=== PATIENT | female | born 2000 | race American Indian/Alaskan Native ===

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

== ENCOUNTER 2020-02-06 11:44 | Emergency (ER) | payer MEDICAID ==
--- NOTE | 2020-02-06 12:04 | Event Note ---
ED Screening Note ED Screening Note: 19 y/o female with a few day history of abdominal pain , nausea, vomiting, diarrhea, excessive coughing, and chest pain. chills. This initial assessment/diagnostic orders/clinical plan/treatment(s) is/are subject to change based on patients health status, clinical progression and re- assessment by fellow clinical providers in the ED. Further treatment and workup at subsequent clinical providers discretion. Patient/guardian urged not to elope from the ED as their condition may be serious if not clinically assessed and managed. Initial orders include: cxr, flu swab,
[2020-02-06 12:50] LABS: HCG Qualitative,Urine Negative (Negative)
[2020-02-06] MEDS ORDERED: SODIUM CHLORIDE 0.9% 1000 ML 1,000 ML IV ONE (13:24)
[2020-02-06] MEDS ORDERED: ONDANSETRON 4 MG/2 ML INJ IV ONE (13:24)
--- NOTE | 2020-02-06 13:27 | XRay Report ---
CHEST PA AND LATERAL VIEWS INDICATION: cough and chest pain. COMPARISON: None. FINDINGS: Support devices: None. Heart: Within normal limits. Lungs/Pleura: No acute pulmonary or pleural findings. IMPRESSION: 1. No acute findings. Signer Name: Jacques Cagle MD Signed: 02/06/2020 1:22 PM Workstation Name: [id number]
--- NOTE | 2020-02-06 14:20 | Emergency Department Report ---
ED N/V/D HPI - General Chief complaint: Nausea/Vomiting/Diarrhea Stated complaint: FLU SYM Time Seen by Provider: 02/06/20 11:59 Source: patient Mode of arrival: Ambulatory Limitations: No Limitations - History of Present Illness Initial comments: 19-year-old -Citizen Of [place] female presents to the emergency room complaining of nausea vomiting diarrhea and cough for 3 days. Patient denies any fever. Patient reported that the vomiting started today and she has had about 7 episodes. Patient states that the diarrhea started today and is been going on every 30 minutes. Patient states she is had a cold for 3 days. Patient reports she is up-to-date on her vaccines. Patient reports her last menstrual period was 01/22/2020. Patient reports that she took Pepto-Bismol prior to arrival. Patient reports she has been taken DayQuil for her cold-like symptoms. Denies any past medical history takes no medications on a daily basis and has no known drug allergies MD complaint: nausea, vomiting, diarrhea, abdominal pain Onset/Timin -: days(s) Description of Vomiting: food contents Description of Diarrhea: water Associated Abdominal Pain: Yes Location: diffuse Severity: moderate Pain Scale: 5 Quality: cramping Consistency: constant Improves with: none Worsens with: none Context: sick contacts (1-year-old child) Associated Symptoms: cough, fever/chills (Chills no fever), nausea/vomiting - Related Data Previous Rx's Medication Instructions Recorded Last Taken Type Ferrous Sulfate [Feosol 325 MG tab] 325 mg PO BID #60 tablet 04/13/18 Unknown Rx Ibuprofen [Motrin 800 MG tab] 800 mg PO Q6H PRN #30 tablet 04/13/18 Unknown Rx Ondansetron [Zofran Odt] 4 mg PO Q8HR #8 tab.rapdis 02/06/20 Unknown Rx Allergies Allergy/AdvReac Type Severity Reaction Status Date / Time No Known Allergies Allergy Verified 02/07/18 23:43 ED Review of Systems ROS: Stated complaint: FLU SYM Other details as noted in HPI Comment: All other systems reviewed and negative ED Past Medical Hx - Past Medical History Previous Medical History?: No Hx Hypertension: No Hx CVA: No Hx Congestive Heart Failure: No Hx Diabetes: No Hx Deep Vein Thrombosis: No Hx Renal Disease: No Hx Sickle Cell Disease: No Hx Seizures: No Hx Asthma: No Hx COPD: No Hx HIV: No - Surgical History Past Surgical History?: No - Social History Smoking Status: Never Smoker Substance Use Type: Marijuana - Medications Home Medications: Home Medications Medication Instructions Recorded Confirmed Last Taken Type Ferrous Sulfate [Feosol 325 MG tab] 325 mg PO BID #60 tablet 04/13/18 Unknown Rx Ibuprofen [Motrin 800 MG tab] 800 mg PO Q6H PRN #30 tablet 04/13/18 Unknown Rx Ondansetron [Zofran Odt] 4 mg PO Q8HR #8 tab.rapdis 02/06/20 Unknown Rx ED Physical Exam - General Limitations: No Limitations General appearance: alert, in no apparent distress - Head Head exam: Present: atraumatic, normocephalic - Eye Eye exam: Present: normal appearance - ENT ENT exam: Present: mucous membranes moist - Neck Neck exam: Present: normal inspection - Respiratory Respiratory exam: Present: normal lung sounds bilaterally. Absent: respiratory distress - Cardiovascular Cardiovascular Exam: Present: tachycardia. Absent: systolic murmur, diastolic murmur, rubs, gallop - GI/Abdominal GI/Abdominal exam: Present: soft, normal bowel sounds. Absent: distended, tenderness, guarding - Extremities Exam Extremities exam: Present: normal inspection - Back Exam Back exam: Present: normal inspection - Neurological Exam Neurological exam: Present: alert, oriented X3, normal gait - Psychiatric Psychiatric exam: Present: normal affect, normal mood - Skin Skin exam: Present: warm, dry, intact, normal color. Absent: rash ED Course Vital Signs 02/06/20 02/06/20 12:00 12:02 Temperature 98.0 F 98.0 F Pulse Rate 103 H 85 Respiratory 20 20 Rate Blood Pressure 133/76 133/75 O2 Sat by Pulse 99 98 Oximetry - Reevaluation(s) Reevaluation #1: 02/06/20 14:32 Patient reports she feels much better after having fluids and Zofran. ED Medical Decision Making - Radiology Data Radiology results: report reviewed Patient: DEWEY PORRAS MR#: [id number] : 2000 Acct:[id number] Age/Sex: 19 / F ADM Date: 02/06/20 Loc: ED Attending Dr: Ordering Physician: FISH MCCONNELL Date of Service: 02/06/20 Procedure(s): XR chest routine 2V Accession Number(s): [id number] cc: FISH MCCONNELL Fluoro Time In Minutes: CHEST PA AND LATERAL VIEWS INDICATION: cough and chest pain. COMPARISON: None. FINDINGS: Support devices: None. Heart: Within normal limits. Lungs/Pleura: No acute pulmonary or pleural findings. IMPRESSION: 1. No acute findings. Signer Name: Jacques Cagle MD Signed: 02/06/2020 1:22 PM Workstation Name: [id number] Transcribed By: LEXA Dictated By: Jacques Cagle MD Electronically Authenticated By: Jacques Cagle MD Signed Date/Time: 02/06/201321 DD/ 21 TD/TT: - Medical Decision Making 19-year-old -Citizen Of [place] female presents to the emergency room complaining of nausea vomiting diarrhea and cough for 3 days. Patient denies any fever. Patient reported that the vomiting started today and she has had about 7 episodes. Patient states that the diarrhea started today and is been going on every 30 minutes. Patient states she is had a cold for 3 days. Patient reports she is up-to-date on her vaccines. Patient reports her last menstrual period was 01/22/2020. Patient reports that she took Pepto-Bismol prior to arrival. Patient reports she has been taken DayQuil for her cold-like symptoms. Denies any past medical history takes no medications on a daily basis and has no known drug allergies. Chest x-ray ordered in triage. IV fluids IV Zofran urine test. Recommend taking Zofran as needed for nausea you can try [id number] Imodium right ear for diarrhea or continue with the Pepto-Bismol. Please continue to drink plenty of fluids keep hydrated and follow-up with your primary care provider. Critical care attestation.: If time is entered above; I have spent that time in minutes in the direct care of this critically ill patient, excluding procedure time. ED Disposition Clinical Impression: Gastroenteritis Disposition: DC-01 TO HOME OR SELFCARE Is pt being admited?: No Does the pt Need Aspirin: No Condition: Stable Instructions: Gastroenteritis (ED) Additional Instructions: Recommend taking Zofran as needed for nausea you can try [id number] Imodium right ear for diarrhea or continue with the Pepto-Bismol. Please continue to drink plenty of fluids keep hydrated and follow-up with your primary care provider. Prescriptions: Ondansetron [Zofran Odt] 4 mg PO Q8HR #8 tab.rapdis Referrals: PRIMARY CARE, [Primary Care Provider] - 3-5 Days Forms: Work/School Release Form(ED)
[2020-02-06 14:47] VITALS: BP 130/71
== END 2020-02-06 14:46 | disposition home or self-care (01) ==
LOC: ED 11:44
DX: K21.9 Gastro-esophageal reflux disease without esophagitis (principal); F12.10 Cannabis abuse, uncomplicated; Z79.899 Other long term (current) drug therapy
CPT/HCPCS: 71046; 81025; 87400; 96361; 96374; 99284; J2405; J7030

== ENCOUNTER 2021-06-24 05:26 | Emergency (ER) | payer MEDICAID | END 2021-06-24 08:30 | disposition left against medical advice (07) | LOC: ED 05:26 | DX: R10.2 Pelvic and perineal pain (principal); Z53.21 Procedure and treatment not carried out due to patient leaving prior to being seen by health care provider ==

== ENCOUNTER 2022-07-10 11:09 | Emergency (ER) | payer MEDICAID ==
[2022-07-10 12:10] VITALS: BP 113/67
--- NOTE | 2022-07-10 13:25 | Emergency Department Report ---
ED Upper Extremity Inj HPI - General Chief Complaint: Extremity Injury, Upper Stated Complaint: BEE STING RIGHT FINGER/HAND SWOLLEN FOR DAYS Time Seen by Provider: 07/10/22 12:29 Source: patient Mode of arrival: Ambulatory Limitations: No Limitations - History of Present Illness Initial Comments: 22-year-old female presents with a right finger pain. Patient reports on Sunday she was stung by a yellowjacket fly, reports worsening pain and swelling at the finger. No numbness tingling or paresthesia, no fever, no nausea vomiting, no headache dizziness vision changes, pain is worsened by nothing and improved with nothing patient has not taken any medications MD Complaint: Injury to:: right, finger Other Extremity Injury: Fingers: Right Other Injuries: none Handedness: right Place: home Severity scale (0 -10): 5 Improves With: none Worsens With: movement of extremity Associated Symptoms: denies other symptoms. denies: weakness, numbness, suspects foreign body, nausea/vomiting - Related Data Previous Rx's Medication Instructions Recorded Last Taken Type Ferrous Sulfate [Feosol 325 MG tab] 325 mg PO BID #60 tablet 04/13/18 Unknown Rx Ibuprofen [Motrin 800 MG tab] 800 mg PO Q6H PRN #30 tablet 04/13/18 Unknown Rx Ondansetron [Zofran Odt] 4 mg PO Q8HR #8 tab.rapdis 02/06/20 Unknown Rx Ibuprofen [Motrin 800 MG tab] 800 mg PO Q8HR PRN #20 tablet 07/10/22 Unknown Rx cephALEXin [Keflex] 500 mg PO Q12HR #14 cap 07/10/22 Unknown Rx Allergies Allergy/AdvReac Type Severity Reaction Status Date / Time No Known Allergies Allergy Verified 07/10/22 12:10 ED Review of Systems ROS: Stated complaint: BEE STING RIGHT FINGER/HAND SWOLLEN FOR DAYS Other details as noted in HPI Cardiovascular: denies: as per HPI, chest pain, palpitations Gastrointestinal: denies: abdominal pain, nausea, vomiting Genitourinary: denies: urgency Musculoskeletal: joint swelling, arthralgia. denies: back pain Skin: denies: rash, lesions Neurological: denies: headache Psychiatric: denies: anxiety, depression ED Past Medical Hx - Past Medical History Previous Medical History?: No Hx Hypertension: No Hx CVA: No Hx Congestive Heart Failure: No Hx Diabetes: No Hx Deep Vein Thrombosis: No Hx Renal Disease: No Hx Sickle Cell Disease: No Hx Seizures: No Hx Asthma: No Hx COPD: No Hx HIV: No - Social History Smoking Status: Never Smoker Substance Use Type: Marijuana - Medications Home Medications: Home Medications Medication Instructions Recorded Confirmed Last Taken Type Ferrous Sulfate [Feosol 325 MG tab] 325 mg PO BID #60 tablet 04/13/18 Unknown Rx Ibuprofen [Motrin 800 MG tab] 800 mg PO Q6H PRN #30 tablet 04/13/18 Unknown Rx Ondansetron [Zofran Odt] 4 mg PO Q8HR #8 tab.rapdis 02/06/20 Unknown Rx Ibuprofen [Motrin 800 MG tab] 800 mg PO Q8HR PRN #20 tablet 07/10/22 Unknown Rx cephALEXin [Keflex] 500 mg PO Q12HR #14 cap 07/10/22 Unknown Rx ED Physical Exam - General Limitations: No Limitations General appearance: alert, in no apparent distress - Head Head exam: Present: atraumatic - Eye Eye exam: Present: normal appearance - ENT ENT exam: Present: normal exam, normal orophraynx - Neck Neck exam: Present: normal inspection - Respiratory Respiratory exam: Present: normal lung sounds bilaterally. Absent: respiratory distress, chest wall tenderness - Cardiovascular Cardiovascular Exam: Present: regular rate - GI/Abdominal GI/Abdominal exam: Present: soft. Absent: distended, tenderness - Extremities Exam Extremities exam: Present: normal inspection, tenderness, normal capillary refill, joint swelling. Absent: full ROM - Back Exam Back exam: Present: normal inspection - Neurological Exam Neurological exam: Present: alert, oriented X3 - Psychiatric Psychiatric exam: Present: normal mood (There is swelling tenderness over her third right finger at the MCP and PIP areas. Passive range of motion, no fluctuance,) - Skin Skin exam: Present: warm, erythema - Other Other exam information: Cap refill sensation pulses intact. ED Course Vital Signs 07/10/22 12:07 Temperature 98.6 F Pulse Rate 59 L Respiratory 16 Rate Blood Pressure 113/67 [Right] O2 Sat by Pulse 100 Oximetry ED Medical Decision Making - Medical Decision Making 22-year-old female presents with a right finger pain. Patient reports on Sunday she was stung by a yellowjacket fly, reports worsening pain and swelling at the finger. No numbness tingling or paresthesia, no fever, no nausea vomiting, no headache dizziness vision changes, Nontoxic-appearing no signs of any systemic process. Will treat supportively with NSAIDs, antihistamine and prophylactic antibiotics due to swelling erythema in the area of injury. I discussed all this with patient includes plan for follow-up with understanding as well as return precautions Critical care attestation.: If time is entered above; I have spent that time in minutes in the direct care of this critically ill patient, excluding procedure time. ED Disposition Clinical Impression: Local reaction to insect sting, Finger pain, right Disposition: HOME / SELF CARE / HOMELESS Is pt being admited?: No Does the pt Need Aspirin: No Condition: Stable Instructions: Bee, Wasp, or Hornet Sting, Pediatric Prescriptions: cephALEXin [Keflex] 500 mg PO Q12HR #14 cap Ibuprofen [Motrin 800 MG tab] 800 mg PO Q8HR PRN #20 tablet PRN Reason: Pain , Severe (7-10) Referrals: TU CARTY MD [Staff Physician] - 3-5 Days
== END 2022-07-10 14:39 | disposition home or self-care (01) ==
LOC: ED 11:09
DX: M79.644 Pain in right finger(s) (principal); T50.901A Poisoning by unspecified drugs, medicaments and biological substances, accidental (unintentional), initial encounter; Y92.89 Other specified places as the place of occurrence of the external cause
CPT/HCPCS: 99282